=== PATIENT | male | born 1965 | race Caucasian/White ===

== ENCOUNTER 2018-04-20 16:09 | Emergency (ER) | END 2018-04-20 22:40 | disposition short-term general hospital (02) ==

== ENCOUNTER 2018-08-04 17:44 | Inpatient (IN) | payer MEDICAID, OTHER ==
[~2018-08-04] VITALS: Ht 167.6 cm; Wt 87.3 kg
--- NOTE | 2018-08-04 21:03 | ERD ---
ER Documentation Chief Complaint Chief Complaint CP WITH RADIAITNG LEFT ARM/BACK PAIN X 1 DAY, HX OF STENT PLACEMENT HPI 52-year-old male with a history of hypertension and CAD status post multiple stents in the past presenting with chest pain that is pressure-like, aching, radiating to his left arm and left upper back. The pain is intermittent, with no alleviating or exacerbating factors. He does have associated shortness of b reath but no nausea, vomiting, diaphoresis, or dizziness. No numbness or tingling in the extremities. No recent travel or immobilization. ROS All systems reviewed and are negative except as per history of present illness. Medications Home Meds Reported Medications Indomethacin* (Indocin* (Ped Susp)) 25 Mg/5 Ml Susp, 2 TAB PO TID PRN for N EEDED, ML FOR GOUT PAIN 08/04/18 Clopidogrel Bisulfate* (Clopidogrel Bisulfate*) 75 Mg Tablet, 75 MG PO DAILY, #30 TAB 08/04/18 Aspirin* (Aspirin* EC) 81 Mg Tablet.dr, 81 MG PO DAILY, TAB 08/04/18 Buspirone Hcl* (Buspirone Hcl*) 10 Mg Tab, 10 MG PO BID, TAB 08/04/18 Allopurinol* (Allopurinol*) 300 Mg Tablet, 300 MG PO DAILY, TAB 08/04/18 Lisinopril* (Lisinopril*) 5 Mg Tablet, 5 MG PO DAILY, #30 TAB 08/04/18 Allergies Allergies: Coded Allergies: No Known Allergy (Unverified , 08/04/18) PMhx/Soc History of Surgery: Yes (RT THUMB, RIGHT KNEE DRAIN, STENTS) Anesthesia Reaction: No Hx Neurological Disorder: No Hx Respiratory Disorders: No Hx Cardiac Disorders: Yes (HTN) Hx Psychiatric Problems: No Hx Miscellaneous Medical Probl: No Hx Alcohol Use: Yes (OCC) Hx Substance Use: No Hx Tobacco Use: No Physical Exam Vitals Vital Signs Date Temp Pulse Resp B/P (MAP) Pulse Ox O2 O2 Flow FiO2 Time Delivery Rate 08/04/18 80 23 137/94 98 Room Air 22:35 (108) 08/04/18 98.1 100 20 156/100 97 17:51 (118) Physical Exam Const: No acute distress Head: Atraumatic Eyes: Normal Conjunctiva ENT: Normal External Ears, Nose and Mouth. Neck: Full range of motion. No meningismus. Resp: Clear to auscultation bilaterally Cardio: Regular rate and rhythm, no murmurs Abd: Soft, non tender, non distended. Normal bowel sounds Skin: No petechiae or rashes Back: No midline or flank tenderness Ext: No cyanosis, or edema Neur: Awake and alert Psych: Normal Mood and Affect Result Diagram: 08/04/18213208/04/182132 Results 24 hrs Laboratory Tests Test 08/04/18 21:33 White Blood Count 13.0 10^3/ul Red Blood Count 5.66 10^6/ul Hemoglobin 14.7 g/dl Hematocrit 47.8 % Mean Corpuscular Volume 84.5 fl Mean Corpuscular Hemoglobin 26.0 pg Mean Corpuscular Hemoglobin Concent 30.8 g/dl Red Cell Distribution Width 14.5 % Platelet Count 349 10^3/UL Mean Platelet Volume 11.5 fl Immature Granulocytes % 0.400 % Neutrophils % 61.0 % Segmented Neutrophils % (Manual) 64 % Lymphocytes % 24.4 % Lymphocytes % (Manual) 24 % Reactive Lymphocytes % (Manual) 1 % Monocytes % 9.5 % Monocytes % (Manual) 5 % Eosinophils % 3.8 % Eosinophils % (Manual) 5 % Basophils % 0.9 % Basophils % (Manual) 1 % Nucleated Red Blood Cells % 0.0 /100WBC Immature Granulocytes # 0.050 10^3/ul Neutrophils # 7.9 10^3/ul Lymphocytes (Manual) 3.1 10^3/ul Lymphocytes # 3.2 10^3/ul Reactive Lymphocytes # 0.1 10^3/ul Monocytes # 1.2 10^3/ul Monocytes # (Manual) 0.6 10^3/ul Eosinophils # 0.5 10^3/ul Basophils # 0.1 10^3/ul Basophils # (Manual) 0.1 10^3/ul Nucleated Red Blood Cells # 0.0 10^3/ul Platelet Estimate NORMAL Giant Platelets 1 % Polychromasia 2+ Anisocytosis 2+ Microcytosis 2+ D-Dimer 716.96 ng/ml D-Dimer Comment Sodium Level 145 mmol/L Potassium Level 4.3 mmol/L Chloride Level 109 mmol/L Carbon Dioxide Level 25 mmol/L Anion Gap 11 Blood Urea Nitrogen 13 mg/dl Creatinine 1.33 mg/dl Est Glomerular Filtrat Rate mL/min 57 mL/min Glucose Level 139 mg/dl Calcium Level 9.6 mg/dl Troponin I < 0.012 ng/ml Current Medications Medications Dose Sig/Shelly Start Time Status Last (Trade) Ordered Route PRN Stop Time Admin Dose Reason Admin Aspirin 162 mg ONCE STAT 08/04/18 DC 08/04/18 (Aspirin) PO 21:09 21:35 08/04/18 21:10 Morphine 4 mg ONCE STAT 08/04/18 DC 08/04/18 Sulfate IV 21:09 21:53 (morphine) 08/04/18 21:10 Sodium 1,000 ml @ Q1H STAT 08/04/18 DC 08/04/18 Chloride 1,000 mls/hr IV 22:13 22:33 08/04/18 23:12 IV Flush 10 ml STK-MED 08/04/18 DC 08/04/18 (NS 10 ml) ONCE .ROUTE 22:36 22:36 08/04/18 22:37 Sodium 100 ml @ ud STK-MED 08/04/18 DC 08/04/18 Chloride ONCE .ROUTE 22:36 23:35 08/04/18 22:37 Iodixanol 100 ml STK-MED 08/04/18 DC 08/04/18 (Visipaque ONCE .ROUTE 22:36 23:35 Locm) 08/04/18 22:37 50 mg ONCE ONCE 08/05/18 DC 08/04/18 Diphenhydrami IV 00:00 23:34 ne HCl 08/05/18 00:01 (Benadryl) Morphine 4 mg ONCE STAT 08/04/18 DC Sulfate IV 23:50 (morphine) 08/04/18 23:51 Procedures/MDM EMERGENT LABS AND DIAGNOSTIC STUDIES: Lab Results above were reviewed and interpreted by me. CBC: Leukocytosis, unclear etiology. No anemia CMP: Mild creatinine elevation, elevated from baseline, indicative of possible renal insufficiency. No evidence of electrolyte abnormality, renal failure, hypoglycemia Troponin within normal limits, not indicative of cardiac ischemia D-dimer elevated, concerning for possible PE 12-lead EKG was interpreted by aDmon Albrecht MD: Normal Sinus Rhythm with ventricular rate of 94 beats per minute Normal axis Normal intervals Inferior Q waves. No acute ST or T wave changes suggestive of acute ischemia or STEMI. Radiology Results as interpreted by Radiology below were reviewed by Sonal Albrecht MD: CTA chest does not show evidence of PE or dissection chest x-ray shows no acute abnormalities Initial Nursing notes reviewed. Previous Medical Records requested via the Electronic Health Record. EMERGENCY DEPARTMENT COURSE / MEDICAL DECISION MAKING: Patients symptoms are concerning for a cardiac etiology. Other etiologies considered were PE, aortic dissection, pneumonia, pneumothorax, esophageal rupture. EKG showed no acute ischemia. Initial troponin negative. CXR grossly unremarkable. However, patient has high risk of adverse events. Patient is not safe for discharge and will need inpatient monitoring and further evaluation. Further workup will be deferred to the inpatient team. Accepting Care Team: Current data and ongoing care discussed. Time: Time of admission Primary Provider: Dr. Modi Outstanding Data: none Departure Diagnosis: Primary Impression: Chest pain Chest pain type: precordial pain Qualified Codes: R07.2 - Precordial pain Condition: KENNY Issa MD Aug 04, 2018 21:03
[2018-08-04] MEDS ORDERED: morphine 4 MG/ML VIAL IV STA ×2 (21:09→23:50)
[2018-08-04] MEDS ORDERED: ASPIRIN 81 MG TAB PO STA (21:09)
[2018-08-04] MEDS ORDERED: LISI-313 PO (21:27)
[2018-08-04] MEDS ORDERED: BUSP10TA2 PO (21:28)
[2018-08-04] MEDS ORDERED: ALLO300T2 PO (21:28)
[2018-08-04] MEDS ORDERED: ASPI-817 PO (21:28)
[2018-08-04] MEDS ORDERED: CLOP75TA19 PO (21:29)
[2018-08-04] MEDS ORDERED: INDOS PO (21:31)
[2018-08-04] MEDS ORDERED: SOD CHLORIDE 0.9% 1,000 ML IV STA (22:13)
[2018-08-04] MEDS ORDERED: SOD CHLORIDE 0.9% 100 ML ONE (22:36)
[2018-08-04] MEDS ORDERED: IODIXANOL LOCM 100 ML BTL ONE (22:36)
[2018-08-05] VITALS (10 sets, daily range): BP systolic 141–155; BP diastolic 82–99; PULSE 73–99; RESP 18–19; Ht 167.6 cm; Wt 87.3 kg
[2018-08-05] MEDS ORDERED: DIPHENHYDRAMINE 50 MG INJ IV ONE
[2018-08-05] MEDS ORDERED: ONDANSETRON 4 MG INJ IV PRN ×2 (00:30)
[2018-08-05] MEDS ORDERED: NITROGLYCERIN (SL) 0.4 MG TAB SL PRN (00:30)
[2018-08-05] MEDS ORDERED: BUSPIRONE 10 MG TAB PO SCH (00:30)
[2018-08-05] MEDS ORDERED: ALBUTEROL/IPRATROPIUM (NEB) 3 ML AMP HHN PRN (00:30)
[2018-08-05] MEDS ORDERED: ACETAMINOPHEN 325 MG TAB PO PRN ×2 (00:30)
[2018-08-05] MEDS ORDERED: NACL 0.9% 3 ML SYG IV SCH (00:30)
[2018-08-05] MEDS: BUSPIRONE 5 MG TAB PO SCH ×3 (01:38→21:26)
--- NOTE | 2018-08-05 06:30 | HP ---
Date/Time of Note Date/Time of Note DATE: 08/05/18 TIME: 06:23 Assessment/Plan VTE Prophylaxis Pharmacological prophylaxis: LMWH Lines/Catheters IV Catheter Type (from Nrsg): Saline Lock Assessment/Plan Assessment/Plan 1. Chest pain: Rule out ACS -Supplemental oxygen, aspirin, statin. As needed nitro 2. Hypertension: Continue home meds. Adjust as needed 3. LEDIY: Expect improvement. Will workup as needed 4. abdominal pain, diarrhea -CT scan -stool studies inclding C-diff 5. History of gout: Continue home med Result Diagram: 08/05/189 08/05/18408 Results 24hrs Laboratory Tests Test 08/04/18 21:33 08/05/18 04:09 08/05/18 04:59 White Blood Count 13.0 H 13.1 H Red Blood Count 5.66 5.29 Hemoglobin 14.7 13.7 L Hematocrit 47.8 44.7 Mean Corpuscular Volume 84.5 84.5 Mean Corpuscular Hemoglobin 26.0 L 25.9 L Mean Corpuscular Hemoglobin Concent 30.8 L 30.6 L Red Cell Distribution Width 14.5 14.4 Platelet Count 349 348 Mean Platelet Volume 11.5 H 10.7 H Immature Granulocytes % 0.400 0.400 Neutrophils % 61.0 61.9 Segmented Neutrophils % (Manual) 64 Lymphocytes % 24.4 22.8 Lymphocytes % (Manual) 24 Reactive Lymphocytes % (Manual) 1 H Monocytes % 9.5 9.4 Monocytes % (Manual) 5 Eosinophils % 3.8 4.7 Eosinophils % (Manual) 5 Basophils % 0.9 0.8 Basophils % (Manual) 1 Nucleated Red Blood Cells % 0.0 0.0 Immature Granulocytes # 0.050 H 0.050 H Neutrophils # 7.9 H 8.1 H Lymphocytes (Manual) 3.1 H Lymphocytes # 3.2 H 3.0 H Reactive Lymphocytes # 0.1 H Monocytes # 1.2 H 1.2 H Monocytes # (Manual) 0.6 Eosinophils # 0.5 0.6 H Basophils # 0.1 0.1 Basophils # (Manual) 0.1 H Nucleated Red Blood Cells # 0.0 0.0 Platelet Estimate NORMAL Giant Platelets 1 H Polychromasia 2+ Anisocytosis 2+ Microcytosis 2+ D-Dimer 716.96 H D-Dimer Comment Sodium Level 145 H 146 H Potassium Level 4.3 4.0 Chloride Level 109 111 H Carbon Dioxide Level 25 25 Anion Gap 11 10 Blood Urea Nitrogen 13 12 Creatinine 1.33 H 1.17 Est Glomerular Filtrat Rate mL/min 57 L > 60 Glucose Level 139 88 # Calcium Level 9.6 9.0 Troponin I < 0.012 < 0.012 < 0.012 Hemoglobin A1c 5.6 Total Bilirubin 0.2 Direct Bilirubin 0.00 Indirect Bilirubin 0.2 Aspartate Amino Transf (AST/SGOT) 23 Alanine Aminotransferase (ALT/SGPT) 21 Alkaline Phosphatase 73 Creatine Kinase 120 106 Creatine Kinase Index 1.3 1.4 Creatinine Kinase MB (Mass) 1.54 1.46 Total Protein 7.3 Albumin 4.0 Globulin 3.30 H Albumin/Globulin Ratio 1.21 Triglycerides Level 159 H Cholesterol Level 201 H LDL Cholesterol, Calculated 125 HDL Cholesterol 44 Cholesterol/HDL Ratio 4.5 Thyroid Stimulating Hormone (TSH) 3.620 HPI/ROS Admit Date/Time Admit Date/Time Aug 05, 2018 at 00:05 Hx of Present Illness This is a 52-year-old male with a history of hypertension, gout and CAD with stent presented to ER complaining of chest pain. Pain started 2 days ago and has been progressively getting worse. It is left-sided with radiation into the left arm, left jaw and upper back. Also reported intermittent shortness of breath. he also complained of Epigastic abdominal pain and watery diarrhea x 4 days. He said he has been taking antibiotic for tooth infection for last 4 days. Initially he said diarrhea started 2 days after started antibiotic, but later on he said it might have been prior to initiation of antibiotics. When presented to ER, BP was 156/100. EKG, first troponin negative. CTPA shows Stable approximately 6 mm noncalcified smoothly marginated right lower lobe pulmonary nodule, but no PE. WBC 13,000, creatinine 1.33, sodium 145. PMH/Family/Social Past Medical History Medications Current Medications Ondansetron HCl (Zofran Inj) 4 mg ER BRIDGE PRN IV NAUSEA/VOMITING Last administered on 08/05/18at 00:12; Admin Dose 4 MG; Start 08/05/18 at 00:30; Stop 08/06/18 at 00:29 Acetaminophen (Tylenol Tab) 650 mg ER BRIDGE PRN PO .MILD PAIN 1-3 OR TEMP; Sta rt 08/05/18 at 00:30; Stop 08/06/18 at 00:29 Sodium Chloride 1,000 ml @ 100 mls/hr Q10H IV ; Start 08/05/18 at 09:00 IV Flush (NS 3 ml) 3 ml PER PROTOCOL IV ; Start 08/05/18 at 00:30 Ondansetron HCl (Zofran Inj) 4 mg Q6H PRN IV NAUSEA/VOMITING Last administered on 08/05/18at 02:11; Admin Dose 4 MG; Start 08/05/18 at 00:30 Nitroglycerin (Nitroglycerin (Sl Tab) 0.4 Mg) 1 tab Q5M PRN SL .CHEST PAIN Last administered on 08/05/18at 03:37; Admin Dose 1 TAB; Start 08/05/18 at 00:30 Acetaminophen (Tylenol Tab) 650 mg Q6H PRN PO .PAIN 1-3 OR TEMP; Start 08/05/18 at 00:30 Acetaminophen/ Hydrocodone Bitart ([place] (5/325)) 1 tab Q6H PRN PO .PAIN 4-6; Start 08/05/18 at 00:30 Albuterol/ Ipratropium (Duoneb) 3 ml Q2H RESP THERAPY PRN HHN SHORTNESS OF BREATH; Start 08/05/18 at 00:30 Allopurinol (Zyloprim) 300 mg DAILY PO ; Start 08/05/18 at 09:00 Aspirin (Halfprin) 81 mg DAILY PO ; Start 08/05/18 at 09:00 Clopidogrel Bisulfate (plaVIX) 75 mg DAILY PO ; Start 08/05/18 at 09:00 Buspirone HCl (Buspar) 10 mg BID PO Last administered on 08/05/18at 01:38; Admin Dose 10 MG; Start 08/05/18 at 00:30 Coded Allergies: No Known Allergy (Unverified , 08/04/18) Social History Smoking Status: Never smoker Exam/Review of Systems Vital Signs Vitals Vital Signs Date Temp Pulse Resp B/P (MAP) Pulse Ox O2 O2 Flow FiO2 Time Delivery Rate 08/05/18 98.1 91 18 141/91 97 04:00 (108) 08/05/18 Room Air 00:43 Exam Constitutional: other (No acute distress) Head: normocephalic, atraumatic Eyes: EOMI, PERRL Respiratory: clear to auscultation, normal air movement Cardiovascular: regular rate and rhythm, nl pulses Gastrointestinal: soft, non-tender Extremities: normal pulses MECHELLE AARON MD Aug 05, 2018 06:30
--- NOTE | 2018-08-05 07:26 | NUR ---
EOSS: Patient alert and oriented x4, no acute distress noted. Hourly rounding done, all needs anticipated and met. Will endorse to oncoming shift to continue to monitor.
[2018-08-05] MEDS: ALLOPURINOL 300 MG TAB PO SCH (09:25)
[2018-08-05] MEDS: SOD CHLORIDE 0.45% 1,000 ML IV SCH ×2 (09:25→19:19)
[2018-08-05] MEDS: CLOPIDOGREL 75 MG TAB PO SCH (09:25)
[2018-08-05] MEDS: ASPIRIN (EC) 81 MG TAB PO SCH (09:25)
[2018-08-05] MEDS: HYDROCODONE/APAP (5/325) TAB PO PRN ×2 (09:37→21:37)
--- NOTE | 2018-08-05 11:10 | PN ---
Date/Time of Note Date/Time of Note DATE: 08/05/18 TIME: 11:05 Assessment/Plan VTE Prophylaxis Risk score (from Ns)>0 risk: 2 SCD applied (from Ns): Yes Pharmacological prophylaxis: other Lines/Catheters IV C[facility]from [facility] Saline Lock Assessment/Plan Hospital Course S: Patient still having some abdominal pain symptoms and some loose stools. O: VS - see below PE: GEN: In bed, no acute distress Head: Atraumatic Eyes: Normal Conjunctiva ENT: Normal External Ears, Nose and Mouth. Neck: Full range of motion. No meningismus. Resp: Clear to auscultation bilaterally Cardio: Regular rate and rhythm, no murmurs Abd: Soft, non tender, non distended. Normal bowel sounds Ext: No lower extremity edema bilaterally Neur: No focal deficits Assessment/Plan: 52-year-old male prior history of PR in 2006, who presents with 1. Chest pain: Patient has ruled out ACS -For now continue supplemental oxygen, aspirin, statin. As needed nitro -Given patient's history of ACS and PR with stent placement in 2006, per patient, will go ahead and obtain cardiology consult 2. Hypertension: Appears stable - continue home meds. Adjust as needed 3. LEIDY: Resolving now, patient had been complaining of diarrhea for a few days prior to admission -Continue IV fluids, expect improvement. Will workup as needed 4. abdominal pain, diarrhea -symptoms still present, no fevers no leukocytosis however. -Follow-up results of CT scan -Follow-up results of stool studies including C-diff 5. History of gout: Appears stable - continue home med Result Diagram: 08/05/18 0409 08/05/18 0409 Results 24hrs Laboratory Tests Test 08/04/18 21:33 08/05/18 04:09 08/05/18 04:59 White Blood Count 13.0 H 13.1 H Red Blood Count 5.66 5.29 Hemoglobin 14.7 13.7 L Hematocrit 47.8 44.7 Mean Corpuscular Volume 84.5 84.5 Mean Corpuscular Hemoglobin 26.0 L 25.9 L Mean Corpuscular Hemoglobin Concent 30.8 L 30.6 L Red Cell Distribution Width 14.5 14.4 Platelet Count 349 348 Mean Platelet Volume 11.5 H 10.7 H Immature Granulocytes % 0.400 0.400 Neutrophils % 61.0 61.9 Segmented Neutrophils % (Manual) 64 Lymphocytes % 24.4 22.8 Lymphocytes % (Manual) 24 Reactive Lymphocytes % (Manual) 1 H Monocytes % 9.5 9.4 Monocytes % (Manual) 5 Eosinophils % 3.8 4.7 Eosinophils % (Manual) 5 Basophils % 0.9 0.8 Basophils % (Manual) 1 Nucleated Red Blood Cells % 0.0 0.0 Immature Granulocytes # 0.050 H 0.050 H Neutrophils # 7.9 H 8.1 H Lymphocytes (Manual) 3.1 H Lymphocytes # 3.2 H 3.0 H Reactive Lymphocytes # 0.1 H Monocytes # 1.2 H 1.2 H Monocytes # (Manual) 0.6 Eosinophils # 0.5 0.6 H Basophils # 0.1 0.1 Basophils # (Manual) 0.1 H Nucleated Red Blood Cells # 0.0 0.0 Platelet Estimate NORMAL Giant Platelets 1 H Polychromasia 2+ Anisocytosis 2+ Microcytosis 2+ D-Dimer 716.96 H D-Dimer Comment Sodium Level 145 H 146 H Potassium Level 4.3 4.0 Chloride Level 109 111 H Carbon Dioxide Level 25 25 Anion Gap 11 10 Blood Urea Nitrogen 13 12 Creatinine 1.33 H 1.17 Est Glomerular Filtrat Rate mL/min 57 L > 60 Glucose Level 139 88 # Calcium Level 9.6 9.0 Troponin I < 0.012 < 0.012 < 0.012 Hemoglobin A1c 5.6 Total Bilirubin 0.2 Direct Bilirubin 0.00 Indirect Bilirubin 0.2 Aspartate Amino Transf (AST/SGOT) 23 Alanine Aminotransferase (ALT/SGPT) 21 Alkaline Phosphatase 73 Creatine Kinase 120 106 Creatine Kinase Index 1.3 1.4 Creatinine Kinase MB (Mass) 1.54 1.46 Total Protein 7.3 Albumin 4.0 Globulin 3.30 H Albumin/Globulin Ratio 1.21 Triglycerides Level 159 H Cholesterol Level 201 H LDL Cholesterol, Calculated 125 HDL Cholesterol 44 Cholesterol/HDL Ratio 4.5 Thyroid Stimulating Hormone (TSH) 3.620 Exam/Review of Systems Exam Vitals Vital Signs Date Temp Pulse Resp B/P (MAP) Pulse Ox O2 O2 Flow FiO2 Time Delivery Rate 08/05/18 73 08:31 08/05/18 98.5 19 146/89 96 07:23 (108) 08/05/18 Room Air 00:43 Intake and Output 08/04/18 08/04/18 08/05/18 1515:00 23:00 07:00 IntakeIntake Total 500 ml BalanceBalance 500 ml Results Results 24hrs Laboratory Tests Test 08/04/18 21:33 08/05/18 04:09 08/05/18 04:59 White Blood Count 13.0 H 13.1 H Red Blood Count 5.66 5.29 Hemoglobin 14.7 13.7 L Hematocrit 47.8 44.7 Mean Corpuscular Volume 84.5 84.5 Mean Corpuscular Hemoglobin 26.0 L 25.9 L Mean Corpuscular Hemoglobin Concent 30.8 L 30.6 L Red Cell Distribution Width 14.5 14.4 Platelet Count 349 348 Mean Platelet Volume 11.5 H 10.7 H Immature Granulocytes % 0.400 0.400 Neutrophils % 61.0 61.9 Segmented Neutrophils % (Manual) 64 Lymphocytes % 24.4 22.8 Lymphocytes % (Manual) 24 Reactive Lymphocytes % (Manual) 1 H Monocytes % 9.5 9.4 Monocytes % (Manual) 5 Eosinophils % 3.8 4.7 Eosinophils % (Manual) 5 Basophils % 0.9 0.8 Basophils % (Manual) 1 Nucleated Red Blood Cells % 0.0 0.0 Immature Granulocytes # 0.050 H 0.050 H Neutrophils # 7.9 H 8.1 H Lymphocytes (Manual) 3.1 H Lymphocytes # 3.2 H 3.0 H Reactive Lymphocytes # 0.1 H Monocytes # 1.2 H 1.2 H Monocytes # (Manual) 0.6 Eosinophils # 0.5 0.6 H Basophils # 0.1 0.1 Basophils # (Manual) 0.1 H Nucleated Red Blood Cells # 0.0 0.0 Platelet Estimate NORMAL Giant Platelets 1 H Polychromasia 2+ Anisocytosis 2+ Microcytosis 2+ D-Dimer 716.96 H D-Dimer Comment Sodium Level 145 H 146 H Potassium Level 4.3 4.0 Chloride Level 109 111 H Carbon Dioxide Level 25 25 Anion Gap 11 10 Blood Urea Nitrogen 13 12 Creatinine 1.33 H 1.17 Est Glomerular Filtrat Rate mL/min 57 L > 60 Glucose Level 139 88 # Calcium Level 9.6 9.0 Troponin I < 0.012 < 0.012 < 0.012 Hemoglobin A1c 5.6 Total Bilirubin 0.2 Direct Bilirubin 0.00 Indirect Bilirubin 0.2 Aspartate Amino Transf (AST/SGOT) 23 Alanine Aminotransferase (ALT/SGPT) 21 Alkaline Phosphatase 73 Creatine Kinase 120 106 Creatine Kinase Index 1.3 1.4 Creatinine Kinase MB (Mass) 1.54 1.46 Total Protein 7.3 Albumin 4.0 Globulin 3.30 H Albumin/Globulin Ratio 1.21 Triglycerides Level 159 H Cholesterol Level 201 H LDL Cholesterol, Calculated 125 HDL Cholesterol 44 Cholesterol/HDL Ratio 4.5 Thyroid Stimulating Hormone (TSH) 3.620 Medications Medication Current Medications Ondansetron HCl (Zofran Inj) 4 mg ER BRIDGE PRN IV NAUSEA/VOMITING Last administered on 08/05/18at 00:12; Admin Dose 4 MG; Start 08/05/18 at 00:30; Stop 08/06/18 at 00:29 Acetaminophen (Tylenol Tab) 650 mg ER BRIDGE PRN PO .MILD PAIN 1-3 OR TEMP; Start 08/05/18 at 00:30; Stop 08/06/18 at 00:29 Sodium Chloride 1,000 ml @ 100 mls/hr Q10H IV Last administered on 08/05/18at 09:25; Admin Dose 100 MLS/HR; Start 08/05/18 at 09:00 IV Flush (NS 3 ml) 3 ml PER PROTOCOL IV ; Start 08/05/18 at 00:30 Ondansetron HCl (Zofran Inj) 4 mg Q6H PRN IV NAUSEA/VOMITING Last administered on 08/05/18at 02:11; Admin Dose 4 MG; Start 08/05/18 at 00:30 Nitroglycerin (Nitroglycerin (Sl Tab) 0.4 Mg) 1 tab Q5M PRN SL .CHEST PAIN Last administered on 08/05/18at 03:37; Admin Dose 1 TAB; Start 08/05/18 at 00:30 Acetaminophen (Tylenol Tab) 650 mg Q6H PRN PO .PAIN 1-3 OR TEMP; Start 08/05/18 at 00:30 Acetaminophen/ Hydrocodone Bitart ([place] (5/325)) 1 tab Q6H PRN PO .PAIN 4-6 Last administered on 08/05/18at 09:37; Admin Dose 1 TAB; Start 08/05/18 at 00:30 Albuterol/ Ipratropium (Duoneb) 3 ml Q2H RESP THERAPY PRN HHN SHORTNESS OF BREATH; Start 08/05/18 at 00:30 Allopurinol (Zyloprim) 300 mg DAILY PO Last administered on 08/05/18at 09:25; Admin Dose 300 MG; Start 08/05/18 at 09:00 Aspirin (Halfprin) 81 mg DAILY PO Last administered on 08/05/18at 09:25; Admin Dose 81 MG; Start 08/05/18 at 09:00 Clopidogrel Bisulfate (plaVIX) 75 mg DAILY PO Last administered on 08/05/18at 09:25; Admin Dose 75 MG; Start 08/05/18 at 09:00 Buspirone HCl (Buspar) 10 mg BID PO Last administered on 08/05/18 09:25; Admin Dose 10 MG; Start 08/05/18 at 00:30 BIRD OTOOLE Aug 05, 2018 11:10
[2018-08-05] MEDS: morphine SULFATE/PF (2 MG/2 ML) SYG IV PRN ×2 (11:38→16:31)
--- NOTE | 2018-08-05 17:01 | RADRPT ---
Echocardiogram Report Patient Name: Masoud DE SNATIAGO ID: [id number] : 1965 (52y 9m)Study Date: 08/05/2018 11:43:43 AM Gender: [place] #: [id number] Tech: [place] Location: Ref.Physician: BIRD OTOOLE Height(Cm): BSA: Weight(Kg): Quality: GoodAccount #: Procedures: Echocardiographic Report: Transthoracic echocardiogram with complete 2D, M-Mode, and doppler examination. Indications: Myocardial Infarction, and Chest Pain. Measurements: 2D/M Mode Doppler Measurement Value Normal Range Measurement Value Normal Range LVIDd 2D 4.7 [ 4.2 - 5.8 ] cm AV Peak Janes 1.5 [ 100.0 - 170.0 ] cm/sec LVIDs 2D 2.7 [ 2.5 - 4.0 ] cm AV Peak PG 10.0 [ 2.0 - 9.0 ] mmHg LVPWd 2D 1.1 [ 0.6 - 1.0 ] cm LVOT Peak Janes 1.0 [ 70.0 - 110.0 ] cm/sec IVSd 2D 1.3 [ 0.6 - 1.0 ] cm LVOT Peak PG 4.0 [ 2.0 - 6.0 ] mmHg IVS/LVPW 2D 1.2 ratio MV E Peak Janes 2.4 [ 60.0 - 130.0 ] cm/sec AoR Diam 2D 2.8 [ 2.6 - 3.4 ] cm TR Peak Janes 1.7 [ 100.0 - 280.0 ] cm/sec LA/Ao 2D 1 ratio TR Peak PG 11.0 mmHg EDV 2D 101.0 [ 62.0 - 150.0 ] ml RA Pressure 8.0 mmHg ESV 2D 27.8 [ 21.0 - 61.0 ] ml EF 2D 72.5 [ 52.0 - 72.0 ] percent LA Dimen 2D 3.7 [ 3.0 - 4.0 ] cm Findings: Left Ventricle: Normal left ventricular systolic function. Normal left ventricular cavity size. Mild concentric left ventricular hypertrophy. Ejection fraction is visually estimated at 55 %. Right Ventricle: Normal right ventricular size. Normal right ventricular systolic function. Left Atrium: The left atrium is normal in size. Right Atrium: The right atrium is normal in size. Mitral Valve: Normal appearance and function of the mitral valve with trace physiologic regurgitation. Aortic Valve: No significant aortic stenosis or insufficiency. Aortic cusps appear mildly calcified. Tricuspid Valve: Normal appearance of the tricuspid valve. Estimated peak PA systolic pressure 19 mmHg. There is trace tricuspid regurgitation. Pulmonic Valve: Normal pulmonic valve appearance. Pericardium: Normal pericardium with no significant pericardial effusion. Aorta: Normal aortic root. IVC: The IVC is not well visualized. Conclusions: Normal left ventricular systolic function. Normal left ventricular cavity size. Mild concentric left ventricular hypertrophy. Ejection fraction is visually estimated at 55 %. Electronically Signed By: Ke Torres 2018-08-05 17:01:07 PST
--- NOTE | 2018-08-05 18:03 | CONS ---
Assessment/Plan Assessment/Plan Hospital Course (Demo Recall) Assessment: Chest pain - rule out for myocardial infarction, echocardiogram with normal systolic function, possible component of chronic stable angina Coronary artery disease, history of myocardial infarction and percutaneous coronary intervention (2007) Hypertension Dyslipidemia Gout Abdominal pain and diarrhea - work up underway Recommendations: -start carvedilol 6.25mg BID -start Imdur 30mg daily -start atorvastatin 40mg daily -continue aspirin 81mg and clopidogrel 75mg daily -patient reports normal cardiac stress test last year, recommend following up with his food and beverage cashier as outpatient to discuss need for repeat cardiac stress testing Consultation Date/Type/Reason Admit Date/Time Aug 05, 2018 at 00:05 Type of Consult Cardiology Reason for Consultation chest pain Date/Time of Note DATE: 08/05/18 TIME: 17:56 Hx of Present Illness The patient is a 52 year-old male who presented with chest pain, abdominal pain, and diarrhea. He reports an episode of sharp left-sided chest pain while at rest, which has now resolved. He also does note some exertional chest pressure, which has been a chronic issue. He has had abdominal and and diarrhea for 3-4 days. EKG showed sinus rhythm with Q waves in III and aVF (consistent with old inferior infarct) and no acute ischemic changes. Troponins have been negative x 3. Chest CTA negative for pulmonary embolism. He has a prior history of myocardial infarction and percutaneous coronary intervention in 2007. He is on aspirin and clopidogrel as an outpatient. He reports having a "normal" cardiac stress test last year. 14 point review of systems negative other than per HPI. Past Medical History Coronary artery disease, history of myocardial infarction and percutaneous coronary intervention (2007) Hypertension Gout Home Meds Reported Medications Indomethacin* (Indocin* (Ped Susp)) 25 Mg/5 Ml Susp, 2 TAB PO TID PRN for NEEDED, ML FOR GOUT PAIN 08/04/18 Clopidogrel Bisulfate* (Clopidogrel Bisulfate*) 75 Mg Tablet, 75 MG PO DAILY, #30 TAB 08/04/18 Aspirin* (Aspirin* EC) 81 Mg Tablet.dr, 81 MG PO DAILY, TAB 08/04/18 Buspirone Hcl* (Buspirone Hcl*) 10 Mg Tab, 10 MG PO BID, TAB 08/04/18 Allopurinol* (Allopurinol*) 300 Mg Tablet, 300 MG PO DAILY, TAB 08/04/18 Lisinopril* (Lisinopril*) 5 Mg Tablet, 5 MG PO DAILY, #30 TAB 08/04/18 Medications Current Medications Sodium Chloride 1,000 ml @ 100 mls/hr Q10H IV Last administered on 08/05/18at 09:25; Admin Dose 100 MLS/HR; Start 08/05/18 at 09:00 IV Flush (NS 3 ml) 3 ml PER PROTOCOL IV ; Start 08/05/18 at 00:30 Ondansetron HCl (Zofran Inj) 4 mg Q6H PRN IV NAUSEA/VOMITING Last administered on 08/05/18at 02:11; Admin Dose 4 MG; Start 08/05/18 at 00:30 Nitroglycerin (Nitroglycerin (Sl Tab) 0.4 Mg) 1 tab Q5M PRN SL .CHEST PAIN Last administered on 08/05/18at 03:37; Admin Dose 1 TAB; Start 08/05/18 at 00:30 Acetaminophen (Tylenol Tab) 650 mg Q6H PRN PO .PAIN 1-3 OR TEMP; Start 08/05/18 at 00:30 Acetaminophen/ Hydrocodone Bitart ([place] (5/325)) 1 tab Q6H PRN PO .PAIN 4-6 Last administered on 08/05/18at 09:37; Admin Dose 1 TAB; Start 08/05/18 at 00:30 Albuterol/ Ipratropium (Duoneb) 3 ml Q2H RESP THERAPY PRN HHN SHORTNESS OF BREATH; Start 08/05/18 at 00:30 Allopurinol (Zyloprim) 300 mg DAILY PO Last administered on 08/05/18at 09:25; Admin Dose 300 MG; Start 08/05/18 at 09:00 Aspirin (Halfprin) 81 mg DAILY PO Last administered on 08/05/18 09:25; Admin Dose 81 MG; Start 08/05/18 at 09:00 Clopidogrel Bisulfate (plaVIX) 75 mg DAILY PO Last administered on 08/05/18 09:25; Admin Dose 75 MG; Start 08/05/18 at 09:00 Buspirone HCl (Buspar) 10 mg BID PO Last administered on 08/05/18 09:25; Admin Dose 10 MG; Start 08/05/18 at 00:30 Morphine Sulfate (morphine SULFATE (PF)) 1 mg Q4H PRN IV SEVERE PAIN LEVEL 7-10 Last administered on 08/05/18at 16:31; Admin Dose 1 MG; Start 08/05/18 at 11:30 Allergies: Coded Allergies: No Known Allergy (Unverified , 08/04/18) Past Surgical History Past Surgical Hx: no surgical history Family History Significant Family History: no pertinent family hx Social History Alcohol Use: occasionally Smoking Status: Never smoker Exam/Review of Systems Vital Signs Vitals Vital Signs Date Temp Pulse Resp B/P (MAP) Pulse Ox O2 O2 Flow FiO2 Time Delivery Rate 08/05/18 74 16:00 08/05/18 98.4 149/98 97 15:17 (115) 08/05/18 Room Air 00:43 Intake and Output 08/04/18 08/04/18 08/05/18 1515:00 23:00 07:00 IntakeIntake Total 500 ml BalanceBalance 500 ml Exam Constitutional: alert, well developed Psych: no complaints, nl mood/affect Head: normocephalic, atraumatic Eyes: nl conjunctiva ENMT: nl external ears & nose, nl nasal mucosa & septum Neck: supple, non-tender; No jvd Respiratory: clear to auscultation Cardiovascular: regular rate and rhythm Gastrointestinal: soft, non-tender Musculoskeletal: nl extremities to inspection Extremities: No cyanosis, No clubbing, No edema Neurological: nl mental status, nl speech Labs Result Diagram: 08/05/189 08/05/18 0409 Results 24hrs Laboratory Tests Test 08/04/18 21:33 08/05/18 04:09 08/05/18 04:59 White Blood Count 13.0 H 13.1 H Red Blood Count 5.66 5.29 Hemoglobin 14.7 13.7 L Hematocrit 47.8 44.7 Mean Corpuscular Volume 84.5 84.5 Mean Corpuscular Hemoglobin 26.0 L 25.9 L Mean Corpuscular Hemoglobin Concent 30.8 L 30.6 L Red Cell Distribution Width 14.5 14.4 Platelet Count 349 348 Mean Platelet Volume 11.5 H 10.7 H Immature Granulocytes % 0.400 0.400 Neutrophils % 61.0 61.9 Segmented Neutrophils % (Manual) 64 Lymphocytes % 24.4 22.8 Lymphocytes % (Manual) 24 Reactive Lymphocytes % (Manual) 1 H Monocytes % 9.5 9.4 Monocytes % (Manual) 5 Eosinophils % 3.8 4.7 Eosinophils % (Manual) 5 Basophils % 0.9 0.8 Basophils % (Manual) 1 Nucleated Red Blood Cells % 0.0 0.0 Immature Granulocytes # 0.050 H 0.050 H Neutrophils # 7.9 H 8.1 H Lymphocytes (Manual) 3.1 H Lymphocytes # 3.2 H 3.0 H Reactive Lymphocytes # 0.1 H Monocytes # 1.2 H 1.2 H Monocytes # (Manual) 0.6 Eosinophils # 0.5 0.6 H Basophils # 0.1 0.1 Basophils # (Manual) 0.1 H Nucleated Red Blood Cells # 0.0 0.0 Platelet Estimate NORMAL Giant Platelets 1 H Polychromasia 2+ Anisocytosis 2+ Microcytosis 2+ D-Dimer 716.96 H D-Dimer Comment Sodium Level 145 H 146 H Potassium Level 4.3 4.0 Chloride Level 109 111 H Carbon Dioxide Level 25 25 Anion Gap 11 10 Blood Urea Nitrogen 13 12 Creatinine 1.33 H 1.17 Est Glomerular Filtrat Rate mL/min 57 L > 60 Glucose Level 139 88 # Calcium Level 9.6 9.0 Troponin I < 0.012 < 0.012 < 0.012 Hemoglobin A1c 5.6 Total Bilirubin 0.2 Direct Bilirubin 0.00 Indirect Bilirubin 0.2 Aspartate Amino Transf (AST/SGOT) 23 Alanine Aminotransferase (ALT/SGPT) 21 Alkaline Phosphatase 73 Creatine Kinase 120 106 Creatine Kinase Index 1.3 1.4 Creatinine Kinase MB (Mass) 1.54 1.46 Total Protein 7.3 Albumin 4.0 Globulin 3.30 H Albumin/Globulin Ratio 1.21 Triglycerides Level 159 H Cholesterol Level 201 H LDL Cholesterol, Calculated 125 HDL Cholesterol 44 Cholesterol/HDL Ratio 4.5 Thyroid Stimulating Hormone (TSH) 3.620 Medications Medications Current Medications Sodium Chloride 1,000 ml @ 100 mls/hr Q10H IV Last administered on 08/05/18at 09:25; Admin Dose 100 MLS/HR; Start 08/05/18 at 09:00 IV Flush (NS 3 ml) 3 ml PER PROTOCOL IV ; Start 08/05/18 at 00:30 Ondansetron HCl (Zofran Inj) 4 mg Q6H PRN IV NAUSEA/VOMITING Last administered on 08/05/18at 02:11; Admin Dose 4 MG; Start 08/05/18 at 00:30 Nitroglycerin (Nitroglycerin (Sl Tab) 0.4 Mg) 1 tab Q5M PRN SL .CHEST PAIN Last administered on 08/05/18at 03:37; Admin Dose 1 TAB; Start 08/05/18 at 00:30 Acetaminophen (Tylenol Tab) 650 mg Q6H PRN PO .PAIN 1-3 OR TEMP; Start 08/05/18 at 00:30 Acetaminophen/ Hydrocodone Bitart ([place] (5/325)) 1 tab Q6H PRN PO .PAIN 4-6 Last administered on 08/05/18 09:37; Admin Dose 1 TAB; Start 08/05/18 at 00:30 Albuterol/ Ipratropium (Duoneb) 3 ml Q2H RESP THERAPY PRN HHN SHORTNESS OF BREATH; Start 08/05/18 at 00:30 Allopurinol (Zyloprim) 300 mg DAILY PO Last administered on 08/05/18 09:25; Admin Dose 300 MG; Start 08/05/18 at 09:00 Aspirin (Halfprin) 81 mg DAILY PO Last administered on 08/05/18 09:25; Admin Dose 81 MG; Start 08/05/18 at 09:00 Clopidogrel Bisulfate (plaVIX) 75 mg DAILY PO Last administered on 08/05/18 09:25; Admin Dose 75 MG; Start 08/05/18 at 09:00 Buspirone HCl (Buspar) 10 mg BID PO Last administered on 08/05/18 09:25; Admin Dose 10 MG; Start 08/05/18 at 00:30 Morphine Sulfate (morphine SULFATE (PF)) 1 mg Q4H PRN IV SEVERE PAIN LEVEL 7-10 Last administered on 08/05/18 16:31; Admin Dose 1 MG; Start 08/05/18 at 11:30 JASON WILLS MD Aug 05, 2018 18:03
--- NOTE | 2018-08-05 18:14 | NUR ---
EOSS Patient is alert and oriented to person, place, and time. no shortness of breath noted. Patient verbalized that norco PO was not working for his back pain. MD notified. Order for morphine IV PRN received. Complained of back pain but was relieved by morphine PRN. Ambulatory with steady gait. Collected stool specimen for feces culture and c.diff. Pending results. All needs attended to and met. Kept comfortable. Call light within reach.
[2018-08-05] MEDS: ISOSORBIDE MONONITRATE(SR)30 MG TAB PO SCH (18:54)
[2018-08-05] MEDS ORDERED: ATORVASTATIN 40 MG TAB PO SCH (21:00)
[2018-08-06] VITALS: BP 127/81; PULSE 76; PULSE 83; RESP 16
[2018-08-06] MEDS: HYDROCODONE/APAP (5/325) TAB PO PRN (03:52)
[2018-08-06] MEDS: SOD CHLORIDE 0.45% 1,000 ML IV SCH (03:54)
[2018-08-06 04:00] VITALS: BP 128/77; PULSE 79; PULSE 87; RESP 16
--- NOTE | 2018-08-06 06:00 | NUR ---
End of Shift Summary No change in pt condition. See pt assessment and EMAR.
[2018-08-06 07:32] VITALS: BP 123/86; PULSE 73; RESP 17
[2018-08-06] MEDS: BUSPIRONE 5 MG TAB PO SCH (08:27)
[2018-08-06] MEDS: ISOSORBIDE MONONITRATE(SR)30 MG TAB PO SCH (08:27)
[2018-08-06] MEDS: CLOPIDOGREL 75 MG TAB PO SCH (08:27)
[2018-08-06] MEDS: ASPIRIN (EC) 81 MG TAB PO SCH (08:27)
[2018-08-06] MEDS: ALLOPURINOL 300 MG TAB PO SCH (08:28)
[2018-08-06 08:46] VITALS: PULSE 75
[2018-08-06] MEDS ORDERED: LORAZEPAM 0.5 MG TAB PO PRN (09:00)
--- NOTE | 2018-08-06 11:03 | PDOCDIS ---
Discharge Instructions CONDITION [id number] Patient Condition: [id number] Stable HOME CARE INSTRUCTIONS: [id number] Diet Instructions: [id number] Low Fat /Cholesterol ACTIVITY: [id number] Activity Restrictions: [id number] Slowly Increase Activity Rest between Activity Avoid heavy lifting FOLLOW UP/APPOINTMENTS Follow-up Plan Please take your medications as prescribed, see your doctor in the clinic in the next 1 week. BIRD OTOOLE Aug 06, 2018 11:03
[2018-08-06] MEDS ORDERED: ATOR40TA68 PO (11:07)
[2018-08-06] MEDS ORDERED: HYDR-4011 PO (11:07)
[2018-08-06] MEDS ORDERED: ISOS30TA67 PO (11:07)
[2018-08-06] MEDS ORDERED: CARV6.2579 PO (11:07)
[2018-08-06] MEDS ORDERED: LORA-441 PO (11:07)
--- NOTE | 2018-08-06 11:18 | DS ---
Date/Time of Note Date/Time of Note DATE: 08/06/18 TIME: 11:12 Discharge Summary Admission/Discharge Info Admit Date/Time Aug 05, 2018 at 11:36 Discharge Date/Time Discharge Diagnosis 1. Chest pain: Patient has ruled out ACS 2. Hypertension 3. LEIDY: Resolved 4. abdominal pain, diarrhea -resolving 5. History of gout 6. History of ACS and MO with stent placement in 2006 Patient Condition: Stable Procedures 2D echo August 05, 2018: Conclusions: Normal left ventricular systolic function. Normal left ventricular cavity size. Mild concentric left ventricular hypertrophy. Ejection fraction is visually estimated at 55 %. Hx of Present Illness 52-year-old male with a history of hypertension, gout and CAD with stent presented to ER complaining of chest pain. Pain started 2 days ago and has been progressively getting worse. It is left-sided with radiation into the left arm, left jaw and upper back. Also reported intermittent shortness of breath. he also complained of Epigastic abdominal pain and watery diarrhea x 4 days. He said he has been taking antibiotic for tooth infection for last 4 days. Initially he said diarrhea started 2 days after started antibiotic, but later on he said it might have been prior to initiation of antibiotics. When presented to ER, BP was 156/100. EKG, first troponin negative. CTPA shows Stable approximately 6 mm noncalcified smoothly marginated right lower lobe pulmonary nodule, but no PE. WBC 13,000, creatinine 1.33, sodium 145. Hospital Course So patient was admitted. Patient ruled out for acute coronary syndrome. Patient was seen by cardiology team and had echocardiogram performed as well. Patient had new blood pressure medicines added to help better control his symptoms including his blood pressure. Patient chest pain symptoms resolved. He was able to ambulate, tolerated p.o. diet. His diarrhea symptoms resolved as well. Because he recently had cardiac stress test a year ago, cardiology team felt that patient can follow-up with his outpatient occasional caregiver for further care and did not require stress test at this time. Patient given strict return precautions in the event he develops any further chest pain or shortness of breath. Patient will be discharged later today, see below for full list of discharge medications. Home Meds Active Scripts Hydrocodone/Acetaminophen ([place] 5-325 Tablet) 1 Each Tablet, 1 EACH PO Q6, #10 TAB Prov:BIRD OTOOLE 08/06/18 Lorazepam* (Ativan*) 0.5 Mg Tablet, 0.5 MG PO BID PRN for AGITATION/ANXIETY, #10 TAB Prov:CAROL OTOOLEP S. 08/06/18 Isosorbide Mononitrate* (Isosorbide Mononitrate*) 30 Mg Tab.er.24h, 30 MG PO DAILY, #30 4 Refills Prov:MARCO OTOOLEBIRD S. 08/06/18 Carvedilol* (Carvedilol*) 6.25 Mg Tablet, 6.25 MG PO BID, #60 TAB 4 Refills Prov:SYDNIE,BIRD S. 08/06/18 Atorvastatin* (Atorvastatin*) 40 Mg Tablet, 40 MG PO HS, #30 TAB 4 Refills Prov:SYDNIEBIRD S. 08/06/18 Reported Medications Indomethacin* (Indocin* (Ped Susp)) 25 Mg/5 Ml Susp, 2 TAB PO TID PRN for NEEDED, ML FOR GOUT PAIN 08/04/18 Clopidogrel Bisulfate* (Clopidogrel Bisulfate*) 75 Mg Tablet, 75 MG PO DAILY, #30 TAB 08/04/18 Aspirin* (Aspirin* EC) 81 Mg Tablet.dr, 81 MG PO DAILY, TAB 08/04/18 Buspirone Hcl* (Buspirone Hcl*) 10 Mg Tab, 10 MG PO BID, TAB 08/04/18 Allopurinol* (Allopurinol*) 300 Mg Tablet, 300 MG PO DAILY, TAB 08/04/18 Discontinued Reported Medications Lisinopril* (Lisinopril*) 5 Mg Tablet, 5 MG PO DAILY, #30 TAB 08/04/18 Follow-up Plan Please take your medications as prescribed, see your doctor in the clinic in the next 1 week. Primary Care Provider Abiodun Melendez Time spent on discharge: > 30 minutes Pending Labs Laboratory Tests Test 08/06/18 05:14 White Blood Count 10.6 10^3/ul (4.8-10.8) Red Blood Count 4.97 10^6/ul (4.70-6.10) Hemoglobin 13.1 g/dl (14.0-18.0) Hematocrit 42.4 % (42.0-52.0) Mean Corpuscular Volume 85.3 fl (82.0-101.0) Mean Corpuscular Hemoglobin 26.4 pg (29.0-33.0) Mean Corpuscular Hemoglobin Concent 30.9 g/dl (32.0-37.0) Red Cell Distribution Width 14.5 % (11.5-14.5) Platelet Count 296 10^3/UL (140-415) Mean Platelet Volume 10.6 fl (7.4-10.4) Immature Granulocytes % 0.400 % (0.001-0.429) Neutrophils % 59.0 % (39.0-77.0) Lymphocytes % 24.5 % (15.0-51.0) Monocytes % 9.5 % (0.0-11.0) Eosinophils % 5.8 % (0.0-7.0) Basophils % 0.8 % (0.0-2.0) Nucleated Red Blood Cells % 0.0 /100WBC (0.0-0.0) Immature Granulocytes # 0.040 10^3/ul (0.0-0.031) Neutrophils # 6.3 10^3/ul (1.6-7.5) Lymphocytes # 2.6 10^3/ul (0.8-2.9) Monocytes # 1.0 10^3/ul (0.3-0.9) Eosinophils # 0.6 10^3/ul (0.0-0.5) Basophils # 0.1 10^3/ul (0.0-0.1) Nucleated Red Blood Cells # 0.0 10^3/ul (0.0-0.0) Sodium Level 143 mmol/L (135-144) Potassium Level 4.3 mmol/L (3.5-5.1) Chloride Level 105 mmol/L (97-110) Carbon Dioxide Level 29 mmol/L (21-31) Anion Gap 9 (5-13) Blood Urea Nitrogen 12 mg/dl (7-20) Creatinine 1.11 mg/dl (0.61-1.24) Est Glomerular Filtrat Rate mL/min > 60 mL/min (>60) Glucose Level 88 mg/dl (70-220) Calcium Level 8.9 mg/dl (8.4-10.2) Phosphorus Level 4.4 mg/dl (2.5-4.9) Magnesium Level 2.1 mg/dl (1.7-2.5) RAHI,BIRD S. Aug 06, 2018 11:18
[2018-08-06 11:23] VITALS: BP 128/78; PULSE 76; RESP 16
--- NOTE | 2018-08-06 12:20 | NUR ---
RN notes patient awake in bed, aox4 able to make needs known, due medications given, all needs attended. pt was cleared by MD for DC. DC packet and instructions given and discussed. IV access removed, minimal bleeding noted. pt stable upon dc via wheelchair.
== END 2018-08-06 12:30 | disposition home or self-care (01) | DRG 313 ==
LOC: E/R 17:44 → 6WM 08-05 00:05 → INTOOBSV 08-05 00:05 → CANRESERV 08-05 00:24 → OBSVTOIN 08-05 11:36
PROVIDERS: ADMIT Internal Medicine; ATTEND Hospitalist
DX: R07.9 Chest pain, unspecified (principal); N17.9 Acute kidney failure, unspecified; I10 Essential (primary) hypertension; I25.10 Atherosclerotic heart disease of native coronary artery without angina pectoris; M1A.9XX0 Chronic gout, unspecified, without tophus (tophi); E78.5 Hyperlipidemia, unspecified; R19.7 Diarrhea, unspecified; Z79.82 Long term (current) use of aspirin; Z95.5 Presence of coronary angioplasty implant and graft
CPT/HCPCS: 36415; 71045; 71275; 80048; 80053; 80061; 82550; 82553; 83036; 83735; 84100; 84443; 84484; 85025; 85378; 87045; 87075; 93005; 93306; 96374; 96375; G0378; J1200; J2270; J2274; J2405; J7030; Q9967